=== PATIENT | male | born 1945 | race Caucasian/White ===

== ENCOUNTER 2017-09-20 04:00 | Inpatient (IN) | payer MEDICARE, BC ==
[2017-09-20] MEDS: OCTREOTIDE 50 MCG in SOD CHLORIDE 0.9% 25 ML IVPB (04:29)
[2017-09-20] MEDS: PANTOPRAZOLE 40 MG INJ IV ×2 (04:50→09:20)
[2017-09-20] MEDS: ONDANSETRON 4 MG INJ IV (04:50)
[2017-09-20] MEDS: SOD CHLORIDE 0.9% 1,000 ML IV ×2 (04:51→06:29)
[2017-09-20 05:12] LABS: ABNORMAL IP MESSAGE 1; HEMATOCRIT 23.5 % (42.0-52.0); MEAN CORPUSCULAR HEMOGLOBIN 24.7 pg (29.0-33.0); MEAN CORPUSCULAR HGB CONC 28.5 g/dl (32.0-37.0); MEAN CORPUSCULAR VOLUME 86.7 fl (82.0-101.0); MEAN PLATELET VOLUME 12.6 fl (7.4-10.4); PLATELET COUNT 166 10^3/UL (140-415); POSITIVE DIFF @See below; RED BLOOD COUNT 2.71 10^6/ul (4.70-6.10); RED CELL DISTRIBUTION WIDTH 23.1 % (11.5-14.5)
[2017-09-20 05:12] LABS: WHITE BLOOD COUNT 7.7 10^3/ul (4.8-10.8)
[2017-09-20 05:29] LABS: ALANINE AMINOTRANSFERASE 29 IU/L (13-69); ALBUMIN 3.4 g/dl (3.3-4.9); ALBUMIN/GLOBULIN RATIO 1.61; ALKALINE PHOSPHATASE 54 IU/L (42-121); ANION GAP 17 (8-16); ASPARTATE AMINO TRANSFERASE 12 IU/L (15-46); BILIRUBIN,INDIRECT 0.3 mg/dl (0-1.1); BILIRUBIN,TOTAL 0.3 mg/dl (0.2-1.3); BLOOD UREA NITROGEN 40 mg/dl (7-20); CALCIUM 9.2 mg/dl (8.4-10.2); CARBON DIOXIDE 29 mmol/L (21-31); CHLORIDE 101 mmol/L (97-110); CREATININE 1.72 mg/dl (0.61-1.24); GLUCOSE 162 mg/dl (70-220); INR 1.04; LIPASE 71 U/L (23-300); POTASSIUM 4.6 mmol/L (3.5-5.1); PROTIME 13.7 Sec (11.9-14.9); PT RATIO 1.1; SODIUM 142 mmol/L (135-144); TOTAL PROTEIN 5.5 g/dl (6.1-8.1)
[2017-09-20 05:30] LABS: ADD MAN DIFF? YES; HEMOGLOBIN 6.7 g/dl (14.0-18.0); PARTIAL THROMBOPLASTIN TIME 24.5 Sec (25.0-35.0)
[2017-09-20 05:31] LABS: PATH REVIEW? YES
[2017-09-20 05:41] LABS: TROPONIN-I 0.028 ng/ml (0.00-0.12)
[2017-09-20] MEDS ORDERED: ONDANSETRON 4 MG INJ IV (06:30)
[2017-09-20 07:28] LABS: ANISOCYTOSIS 2+ (0-0); BAND NEUTROPHILS #M 0.1 10^3/ul (0.0-0.6); BAND NEUTROPHILS % (M) 2 % (0-4); EOSINOPHILS % (M) 2 % (0-7); LYMPHOCYTES #M 1.1 10^3/ul (0.8-2.9); LYMPHOCYTES % (M) 15 % (15-51); MICROCYTOSIS 2+ (0-0); MONOCYTE #M 0.5 10^3/ul (0.3-0.9); MONOCYTES % (M) 7 % (0-11); OVALOCYTES 1+ (0-0); PLATELET ESTIMATE NORMAL; POIKILOCYTOSIS 2+ (0-0); POLYCHROMASIA 3+ (0-0); REACTIVE LYMPHOCYTES #M 0.1 10^3/ul (0.0-0.0); REACTIVE LYMPHOCYTES% (M) 2 % (0-0); SEG NEUT #M 5.6 10^3/ul (1.6-7.5); SEGMENTED NEUTROPHILS (M) % 72 % (39-77); SMUDGE%M 6 % (0-0)
[2017-09-20 08:07] LABS: ETHANOL < 10.0 mg/dl
[2017-09-20] MEDS ORDERED: INSULIN GLARGINE [LANtus] 3 ML PEN SC (09:00)
[2017-09-20] MEDS: BUMETANIDE 0.5 MG TAB PO (09:21)
[2017-09-20] MEDS: DOXAZOSIN 2 MG TAB PO (09:22)
[2017-09-20] MEDS: ALLOPURINOL 300 MG TAB PO (09:23)
[2017-09-20 12:22] LABS: HEMATOCRIT 25.8 % (42.0-52.0); HEMOGLOBIN 7.9 g/dl (14.0-18.0)
[2017-09-20] MEDS: SOD CHLORIDE 0.9% 250 ML IV* ×2 (12:37→13:47)
[2017-09-20] MEDS ORDERED: SOD CHLORIDE 0.9% 250 ML IV* (12:37)
[2017-09-20] MEDS: PANTOPRAZOLE IV 80 MG in SOD CHLORIDE 0.9% 100 ML IV (13:46)
[2017-09-20] MEDS: LOSARTAN 50 MG TAB PO (16:07)
[2017-09-20] MEDS: SUCRALFATE (100 MG/ML) 10ML CUP PO ×2 (16:08→21:00)
[2017-09-20] MEDS: SOD FERRIC GLUC COMPLX 125 MG in SOD CHLORIDE 0.9% 100 ML IVPB (16:08)
[2017-09-20] MEDS: MAGNESIUM OXIDE 400 MG TAB PO (16:08)
[2017-09-20] MEDS: THIAMINE 200 MG INJ IM (16:09)
[2017-09-20] MEDS ORDERED: PANTOPRAZOLE (EC) 40 MG TAB PO (18:00)
[2017-09-20] MEDS: OCTREOTIDE 50 MCG in SOD CHLORIDE 0.9% 50 ML IVPB (19:40)
[2017-09-20 20:34] LABS: HEMATOCRIT 25.8 % (42.0-52.0); HEMOGLOBIN 7.8 g/dl (14.0-18.0)
[2017-09-20] MEDS ORDERED: EZETIMIBE 10 MG TAB PO (21:00)
[2017-09-21] MEDS: ATORVASTATIN 10 MG TAB PO ×2 (00:38→21:33)
[2017-09-21] MEDS: PANTOPRAZOLE (EC) 40 MG TAB PO ×3 (00:38→21:33)
[2017-09-21] MEDS: SOD CHLORIDE 0.9% 1,000 ML IV ×4 (00:39→21:46)
[2017-09-21 00:59] LABS: HEMOGLOBIN 7.5 g/dl (14.0-18.0)
[2017-09-21] MEDS: PANTOPRAZOLE IV 80 MG in SOD CHLORIDE 0.9% 100 ML IV (01:30)
[2017-09-21] MEDS: DOXAZOSIN 2 MG TAB PO ×2 (01:31→21:00)
[2017-09-21] MEDS: PROPOFOL 40 ML (07:31)
[2017-09-21] MEDS: LIDOCAINE 100 MG SYRINGE (07:31)
[2017-09-21 08:06] LABS: HEMATOCRIT 24.1 % (42.0-52.0); HEMOGLOBIN 7.2 g/dl (14.0-18.0)
[2017-09-21] MEDS: LOSARTAN 50 MG TAB PO (08:53)
[2017-09-21] MEDS: ALLOPURINOL 300 MG TAB PO (08:53)
[2017-09-21 09:04] LABS: ANION GAP 12 (8-16); BLOOD UREA NITROGEN 29 mg/dl (7-20); CALCIUM 8.2 mg/dl (8.4-10.2); CARBON DIOXIDE 29 mmol/L (21-31); CHLORIDE 107 mmol/L (97-110); CREATININE 1.32 mg/dl (0.61-1.24); GLUCOSE 125 mg/dl (70-220); POTASSIUM 4.2 mmol/L (3.5-5.1); SODIUM 144 mmol/L (135-144)
[2017-09-21] MEDS: BUMETANIDE 0.5 MG TAB PO (10:27)
[2017-09-21] MEDS: MAGNESIUM OXIDE 400 MG TAB PO (10:27)
[2017-09-21] MEDS: SUCRALFATE (100 MG/ML) 10ML CUP PO ×4 (10:27→21:33)
[2017-09-21] MEDS: EZETIMIBE 10 MG TAB PO (10:27)
[2017-09-21 12:23] LABS: HEMATOCRIT 25.2 % (42.0-52.0); HEMOGLOBIN 7.5 g/dl (14.0-18.0)
[2017-09-21] MEDS: EPINEPHrine 0.1 MG/ML SYG (17:05)
[2017-09-21] MEDS: SOD FERRIC GLUC COMPLX 125 MG in SOD CHLORIDE 0.9% 100 ML IVPB (17:06)
[2017-09-21] MEDS: ACCU-CHEK XX ×3 (17:06→21:00)
[2017-09-21 18:43] LABS: HEMATOCRIT 24.4 % (42.0-52.0); HEMOGLOBIN 7.1 g/dl (14.0-18.0)
[2017-09-22 00:20] LABS: HEMATOCRIT 23.6 % (42.0-52.0)
[2017-09-22 00:28] LABS: HEMOGLOBIN 6.9 g/dl (14.0-18.0)
[2017-09-22 07:11] LABS: HEMATOCRIT 23.5 % (42.0-52.0)
[2017-09-22 07:16] LABS: HEMOGLOBIN 6.8 g/dl (14.0-18.0)
[2017-09-22] MEDS: ACCU-CHEK XX ×7 (07:30→20:33)
[2017-09-22] MEDS: SOD CHLORIDE 0.9% 1,000 ML IV ×3 (08:29→17:27)
[2017-09-22] MEDS: ALLOPURINOL 300 MG TAB PO (09:43)
[2017-09-22] MEDS: EZETIMIBE 10 MG TAB PO (09:43)
[2017-09-22] MEDS: BUMETANIDE 0.5 MG TAB PO (09:43)
[2017-09-22] MEDS: PANTOPRAZOLE (EC) 40 MG TAB PO (09:43)
[2017-09-22] MEDS: SUCRALFATE (100 MG/ML) 10ML CUP PO ×4 (09:43→20:33)
[2017-09-22] MEDS: LOSARTAN 50 MG TAB PO (09:44)
[2017-09-22] MEDS: OCTREOTIDE 1 MG in DEXTROSE 5% 95 ML IV (11:56)
[2017-09-22] MEDS: FERROUS SULFATE (EC) 325 MG TAB PO ×2 (11:56→17:26)
[2017-09-22] MEDS: PANTOPRAZOLE IV 80 MG in SOD CHLORIDE 0.9% 100 ML IV ×2 (11:56→20:39)
[2017-09-22] MEDS: SOD CHLORIDE 0.9% 250 ML IV (12:49)
[2017-09-22 15:16] LABS: IMMEDIATE SPIN CROSSMATCH 1 6
[2017-09-22] MEDS: SOD FERRIC GLUC COMPLX 125 MG in SOD CHLORIDE 0.9% 100 ML IVPB (17:26)
[2017-09-22 19:14] LABS: HEMATOCRIT 29.6 % (42.0-52.0)
[2017-09-22] MEDS: ATORVASTATIN 10 MG TAB PO (20:31)
[2017-09-22] MEDS: DOXAZOSIN 2 MG TAB PO (20:32)
[2017-09-22] MEDS: SOD CHLORIDE 0.9% 500 ML IV (23:30)
[2017-09-23 01:05] LABS: HEMATOCRIT 28.6 % (42.0-52.0); HEMOGLOBIN 8.8 g/dl (14.0-18.0)
[2017-09-23] MEDS: SOD CHLORIDE 0.9% 500 ML IV ×5 (04:30→19:59)
[2017-09-23] MEDS: ACCU-CHEK XX ×7 (07:30→21:00)
[2017-09-23 07:57] LABS: ADD MAN DIFF? NO
[2017-09-23 08:00] LABS: WHITE BLOOD COUNT 4.5 10^3/ul (4.8-10.8)
[2017-09-23 08:00] LABS: BASOPHIL # 0.1 10^3/ul (0.0-0.1); BASOPHILS % 1.1 % (0.0-2.0); EOSINOPHILS # 0.2 10^3/ul (0.0-0.5); EOSINOPHILS % 3.4 % (0.0-7.0); HEMATOCRIT 28.3 % (42.0-52.0); HEMOGLOBIN 8.6 g/dl (14.0-18.0); LYMPHOCYTES % 23.1 % (15.0-51.0); MEAN CORPUSCULAR HEMOGLOBIN 26.9 pg (29.0-33.0); MEAN CORPUSCULAR HGB CONC 30.4 g/dl (32.0-37.0); MEAN CORPUSCULAR VOLUME 88.4 fl (82.0-101.0); MEAN PLATELET VOLUME 12.4 fl (7.4-10.4); MONOCYTE # 0.4 10^3/ul (0.3-0.9); MONOCYTES % 8.3 % (0.0-11.0); NEUTROPHIL # 2.9 10^3/ul (1.6-7.5); NEUTROPHILS % 63.9 % (39.0-77.0); PLATELET COUNT 141 10^3/UL (140-415); RED CELL DISTRIBUTION WIDTH 20.1 % (11.5-14.5)
[2017-09-23] MEDS: OCTREOTIDE 1 MG in DEXTROSE 5% 95 ML IV (08:00)
[2017-09-23] MEDS: PANTOPRAZOLE IV 80 MG in SOD CHLORIDE 0.9% 100 ML IV (08:00)
[2017-09-23 08:20] LABS: ANION GAP 14 (8-16); BLOOD UREA NITROGEN 16 mg/dl (7-20); CALCIUM 8.1 mg/dl (8.4-10.2); CARBON DIOXIDE 27 mmol/L (21-31); CHLORIDE 108 mmol/L (97-110); GLUCOSE 120 mg/dl (70-220); POTASSIUM 3.8 mmol/L (3.5-5.1); SODIUM 145 mmol/L (135-144)
[2017-09-23] MEDS: BUMETANIDE 0.5 MG TAB PO (08:54)
[2017-09-23] MEDS: SUCRALFATE (100 MG/ML) 10ML CUP PO ×4 (08:55→21:00)
[2017-09-23] MEDS: FERROUS SULFATE (EC) 325 MG TAB PO ×3 (08:55→17:52)
[2017-09-23] MEDS: ALLOPURINOL 300 MG TAB PO (08:56)
[2017-09-23] MEDS: LOSARTAN 50 MG TAB PO (08:56)
[2017-09-23] MEDS: EZETIMIBE 10 MG TAB PO (09:13)
[2017-09-23 16:49] LABS: HEMATOCRIT 31.3 % (42.0-52.0); HEMOGLOBIN 9.5 g/dl (14.0-18.0)
[2017-09-23] MEDS: PANTOPRAZOLE (EC) 40 MG TAB PO (17:52)
[2017-09-23] MEDS: ATORVASTATIN 10 MG TAB PO (21:00)
[2017-09-23] MEDS: DOXAZOSIN 2 MG TAB PO (21:04)
[2017-09-24] MEDS: SOD CHLORIDE 0.9% 500 ML IV ×3 (00:30→10:30)
[2017-09-24] MEDS: PANTOPRAZOLE (EC) 40 MG TAB PO (06:33)
[2017-09-24] MEDS: ACCU-CHEK XX ×3 (07:30→11:30)
[2017-09-24] MEDS: FERROUS SULFATE (EC) 325 MG TAB PO ×2 (10:19→12:48)
[2017-09-24] MEDS: SUCRALFATE (100 MG/ML) 10ML CUP PO ×2 (10:19→12:48)
[2017-09-24] MEDS: EZETIMIBE 10 MG TAB PO (10:19)
[2017-09-24] MEDS: ALLOPURINOL 300 MG TAB PO (10:19)
[2017-09-24] MEDS: BUMETANIDE 0.5 MG TAB PO (10:19)
[2017-09-24] MEDS: LOSARTAN 50 MG TAB PO (10:20)
[2017-09-24] MEDS: MAGNESIUM OXIDE 400 MG TAB PO (12:49)
== END 2017-09-24 15:33 | disposition home or self-care (01) | DRG 378 ==
LOC: MS4 05:56 → E/R 04:00
PROC: 0W3P8ZZ Control Bleeding in Gastrointestinal Tract, Via Natural or Artificial Opening Endoscopic (ICD-10-PCS; principal; 2017-09-20 11:17)
PROC: 30233N1 Transfusion of Nonautologous Red Blood Cells into Peripheral Vein, Percutaneous Approach (ICD-10-PCS; 2017-09-20 11:17)
PROC: 30233N1 Transfusion of Nonautologous Red Blood Cells into Peripheral Vein, Percutaneous Approach (ICD-10-PCS; 2017-09-20 11:17)
DX: K25.0 Acute gastric ulcer with hemorrhage (principal); D62 Acute posthemorrhagic anemia; E11.42 Type 2 diabetes mellitus with diabetic polyneuropathy; I11.0 Hypertensive heart disease with heart failure; I50.9 Heart failure, unspecified; G47.33 Obstructive sleep apnea (adult) (pediatric); E66.9 Obesity, unspecified; Z68.35 Body mass index [BMI] 35.0-35.9, adult; Z71.3 Dietary counseling and surveillance; I25.10 Atherosclerotic heart disease of native coronary artery without angina pectoris; E78.5 Hyperlipidemia, unspecified; N40.0 Benign prostatic hyperplasia without lower urinary tract symptoms; F10.20 Alcohol dependence, uncomplicated; Y90.0 Blood alcohol level of less than 20 mg/100 ml; K76.0 Fatty (change of) liver, not elsewhere classified; E86.0 Dehydration; N63.20 Unspecified lump in the left breast, unspecified quadrant; T39.395A Adverse effect of other nonsteroidal anti-inflammatory drugs [NSAID], initial encounter; Y92.019 Unspecified place in single-family (private) house as the place of occurrence of the external cause; Z79.4 Long term (current) use of insulin; Z98.84 Bariatric surgery status; Z95.1 Presence of aortocoronary bypass graft
CPT/HCPCS: 36415; 36430; 71045; 73562; 80048; 80053; 80306; 82962; 83690; 84484; 85014; 85018; 85025; 85610; 85730; 86850; 86900; 86901; 86920; 93005; 96372; 96374; 96375; 96376; 99285-25

== ENCOUNTER → 2018-02-18 | Outpatient (CLI) | payer MEDICARE, BC | END | disposition home or self-care (01) | LOC: HKI 10:14 | DX: M17.11 Unilateral primary osteoarthritis, right knee (principal); I25.10 Atherosclerotic heart disease of native coronary artery without angina pectoris; Z95.1 Presence of aortocoronary bypass graft; Z91.81 History of falling | CPT/HCPCS: 20610; 73562-50 ==

== ENCOUNTER → 2018-08-13 | Outpatient (CLI) | payer MEDICARE, BC | END | disposition home or self-care (01) | LOC: NUC 10:30 | DX: K80.80 Other cholelithiasis without obstruction (principal) | CPT/HCPCS: 78226 ==